=== PATIENT | female | born 1995 | race Two or more races ===

== ENCOUNTER → 2018-02-14 15:35 | Outpatient (CLI) | payer OTHER, SELFPAY ==
[2018-02-14 15:58] LABS: Basophils # 0.1 K/mm3 (0-0.2); Basophils % 0.5 % (0.1-2.0); Eosinophils # 2.4 K/mm3 (0.0-0.4); Eosinophils % 17.5 % (0.1-12.0); Hematocrit 40.2 % (37.0-47.0); Hemoglobin 13.2 g/dL (12.2-16.2); Lymphocytes # 3.2 K/mm3 (0.7-4.5); Lymphocytes % 23.3 K/mm3 (10-50); Mean Corpuscular HGB Conc 32.8 g/dL (31.8-35.4); Mean Corpuscular Hemoglobin 29.4 pg (27.0-31.2); Mean Corpuscular Volume 89.7 fl (81-99); Mean Platelet Volume 7.4 fl (7.4-10.4); Monocytes # 0.6 K/mm3 (0.1-1.0); Monocytes % 4.3 % (1.7-9.3); Neutrophils # 7.5 K/mm3 (1.8-7.8); Neutrophils % 54.4 % (37.0-80.0); Platelet Count 275 K/mm3 (142-424); Red Blood Count 4.48 M/mm3 (4.20-5.40); White Blood Count 13.7 K/mm3 (4.8-10.8)
[2018-02-16 18:07] LABS: HIV Screen 4th Generation wRfx Non Reactive (Non Reactive); Hepatitis B Surface Antigen Negative (Negative); Hepatitis C Antibody <0.1 s/co ratio (0.0-0.9); Rapid Plasma Reagin Ab Titer Non Reactive (NonRea<1:1)
== END ==
PROVIDERS: Visit Provider Obstetrics & Gynecology
DX: Z34.90 Encounter for supervision of normal pregnancy, unspecified, unspecified trimester (principal)
CPT/HCPCS: 36415; 85025; 86592; 86703; 86762; 86850; 87340; 87380; G0432

== ENCOUNTER → 2018-03-28 13:15 | Outpatient (CLI) | payer OTHER, SELFPAY ==
--- NOTE | 2018-03-28 13:16 | US_ITS ---
US OB /maternal detail: INDICATION: ITS.REASON: US OB COMPLETE ORDERING PHYSICIAN: Alison Gerardo MD PATIENT AGE: 23 years TECHNIQUE: ultrasound transabdominal scanning. COMPARISON: No previous relevant studies. FINDINGS: Single viable intrauterine gestation. Breech position. Placenta: Anterior with a posterior accessory lobe placenta grade 1. There is average amount fluid. The cervix appears satisfactory. Closed and measuring 3 cm in length. Complete survey performed and was unremarkable on the submitted images as in PACS. No discrete anomalies identified on survey imaging by technologist. Active fetus. Three-vessel cord with satisfactory umbilical cord insertion. 4- chamber heart noted. Survey of brain & ventricles unremarkable. Face and neck survey unremarkable. Diaphragm and chest views unremarkable. Abdomen: Both kidneys noted and unremarkable. Stomach noted and satisfactory. Spine: Survey of the spine satisfactory with no anomalies identified nor imaged. Both arms and legs noted. Amniotic Fluid: Adequate. Maternal adnexa: No significant findings. Measurements: Average ultrasound age 20w4d. Gestational Age 20w5d. Estimated due date by ultrasound age 1208/11/2018. Estimated weight 375 grams. This is 47th percentile based on established due date of 08/10/2018 BPD = 20w2d OFD = 21w2d HC = 20w1d AC = 20w6d FL = 21w0d Heart Rate = 143 Cerebellum = 19w6d Humerus = 21w0d HC/AC is 1.12 (1.09-1.26). CI is 73% (70-86%). FL/BPD is 74%. FL/AC is 22%. IMPRESSION: There is a single live fetus which is in breech presentation with an average ultrasound age of 20 weeks 4 days. heart and body motion noted. All parameters correlate. No obvious anomalies. Please see above for detail
== END ==
PROVIDERS: PCP Obstetrics & Gynecology; Visit Provider Obstetrics & Gynecology
DX: Z36.0 Encounter for antenatal screening for chromosomal anomalies (principal)
CPT/HCPCS: 76811

== ENCOUNTER → 2018-07-24 16:59 | Outpatient (CLI) | payer OTHER, SELFPAY | PROVIDERS: Visit Provider Obstetrics & Gynecology | DX: Z34.90 Encounter for supervision of normal pregnancy, unspecified, unspecified trimester (principal) | CPT/HCPCS: 86403 ==

== ENCOUNTER 2018-08-05 05:51 | Inpatient (IN) ==
[2018-08-05 06:54] LABS: Basophils # 0.1 K/mm3 (0-0.2); Basophils % 0.4 % (0.1-2.0); Eosinophils # 1.3 K/mm3 (0.0-0.4); Eosinophils % 8.7 % (0.1-12.0); Hematocrit 33.4 % (37.0-47.0); Hemoglobin 10.7 g/dL (12.2-16.2); Lymphocytes # 3.9 K/mm3 (0.7-4.5); Lymphocytes % 26.8 % (10-50); Mean Corpuscular HGB Conc 31.9 g/dL (31.8-35.4); Mean Corpuscular Hemoglobin 25.9 pg (27.0-31.2); Mean Corpuscular Volume 81.2 fl (81-99); Mean Platelet Volume 9.8 fl (7.4-10.4); Monocytes # 0.6 K/mm3 (0.1-1.0); Monocytes % 4.4 % (1.7-9.3); Neutrophils # 8.6 K/mm3 (1.8-7.8); Neutrophils % 59.6 % (37.0-80.0); Platelet Count 273 K/mm3 (142-424); Red Blood Count 4.12 M/mm3 (4.20-5.40); Red Cell Distribution Width 15.2 % (11.5-17.5); White Blood Count 14.4 K/mm3 (4.8-10.8)
--- NOTE | 2018-08-05 09:56 | Progress Note ---
[facility] Anesthesia Record Part I Intake, IV Amount: 2,000 Estimated blood loss (mL): 600 Urine output (mL): 200 Blood Pressure: 119/41 SaO2: 97 Pulse Rate: 73 Respiratory Rate: 16 Temperature: 97.7 F Patient is:: Awake, Stable Stable to PACU at:: 09:55
--- NOTE | 2018-08-05 09:56 | Progress Note ---
[facility] Anesthesia Checklist - Patient Identification Patient Identification: Arm Band - Structural Data Admitted From: Home Planned Operative Procedure/s: repeat c/s Consent for Planned Operative Procedure(s) Verified: Yes Verified Documents: Surgical Consent, History and Physical - NPO Status Verified Time NPO: 00:00 - Additional verifications Anesthesia Reactions: No - Airway Assessment C-Spine Mobility Assessed: Yes (mp2) TMJ Mobility Assessed: Yes Dentition: Good Dentition - Neurological Assessment Level of Consciousness: Awake, Alert - Anesthesia Plan Anesthesia Risk discussed: Yes Anesthesia Plan: Verified ASA Class: II Anesthesia Type: Spinal [facility] History I have reviewed the patient's past medical history: Yes Medical History: Denies:: Anxiety, Depression, Seizures Other Surgeries: Yes: (01/04/2016) Amputation: No Fractures: No - *Social History Smoking Status: Never smoker Alcohol Intake: never Substance Use Type: denies use - Psychiatric History Pschychiatric History:: Denies:: Anxiety, Depression *Family Hx:: No significant family history Para: 1
--- NOTE | 2018-08-05 09:57 | Progress Note ---
[facility] Anesthesia Record Part II Discharge Time: 10:25 Destination: Obstetric PACU nurse assessment reviewed?: Yes Patient Condition:: Good Anesthesia Complications:: None
--- NOTE | 2018-08-05 10:19 | Pharmacy Consult Notes ---
[facility] Pharmacy VTE Monitoring - Patient Demographics Admission date: 08/05/18 Report Date: 08/05/18 Time: 10:19 Allergies/Adverse Reactions: Patient Allergies No Known Allergies Allergy (Verified 07/24/18 10:50) Height: 1.52 m Weight: 79.492 kg - VTE Risk Labs: VTE Related Lab Results Hgb 10.7 g/dL (12.2-16.2) L 08/05/18 06:35 Hct 33.4 % (37.0-47.0) L 08/05/18 06:35 Plt Count 273 K/mm3 (142-424) 08/05/18 06:35 - Prophylaxis VTE Prophylaxis Ordered?: Yes Types of VTE Prophylaxis: IPCS Thigh High Location of Applied Device: Bilateral Lower Extremeties - VTE Diagnosis Confirmed Treatment or plan recommended: Continue Current Treatment
[2018-08-06 00:04] VITALS: BP 109/76
[2018-08-06 06:34] LABS: Basophils # 0.1 K/mm3 (0-0.2); Basophils % 0.4 % (0.1-2.0); Eosinophils % 7.6 % (0.1-12.0); Hematocrit 27.4 % (37.0-47.0); Lymphocytes % 22.7 % (10-50); Mean Corpuscular HGB Conc 31.9 g/dL (31.8-35.4); Mean Corpuscular Hemoglobin 25.7 pg (27.0-31.2); Mean Corpuscular Volume 80.6 fl (81-99); Mean Platelet Volume 9.5 fl (7.4-10.4); Monocytes # 0.7 K/mm3 (0.1-1.0); Monocytes % 5.5 % (1.7-9.3); Neutrophils # 8.5 K/mm3 (1.8-7.8); Neutrophils % 63.9 % (37.0-80.0); Platelet Count 238 K/mm3 (142-424); Red Cell Distribution Width 15.5 % (11.5-17.5); White Blood Count 13.4 K/mm3 (4.8-10.8)
[2018-08-06 06:55] LABS: Hemoglobin 8.8 g/dL (12.2-16.2)
--- NOTE | 2018-08-06 15:43 | Operative Note ---
Date of procedure: 08/05/18 Pre-op Diagnosis:: 1. IUP 39 wks 2. Previous CS, declines CASSANDRA 3. H/O macrosomic Post-op Diagnosis:: 1. IUP 39 wks 2. Previous CS, declines CASSANDRA 3. H/O macrosomic infant Procedure performed:: Repeat Low Transverse C Section Surgeon:: Alison Gerardo MD Anesthesia: spinal Estimated blood loss (mL): 600 Operative findings:: grossly normal uterus, Fallopian tubes and ovaries bilaterally. See delivery summary for data. Operative note:: The patient was taken to the OR and spinal administered without difficulty. She was prepped and draped in normal sterile fashion. A pfannenstiel skin incision was made with the scalpel and carried down to the fascia. The fascia was incised in the midline and sharply dissected off the rectus muscles. The muscles were in the midline and the peritoneum was entered sharply and extended bluntly. The Ryan-O self retaining retractor was placed in the abd omen and a bladder flap was created. The uterus was incised in the lower uterine segment in a transverse fashion and extended bluntly. Amniotomy was performed and clear fluid noted. The infant was delivered in controlled fashion, without complication or shoulder dystocia. The infant was vigorous at and handed to awaiting family and consumer education teacher for evaluation after cord clamped and cut. The placenta was manually extracted and noted to be intact. The uterus was repaired with 0-vicryl in a running/locked fashion. The peritoneum was closed with 2-0 vicryl in running fashion. The subcutaneous fat was closed with 2-0 vicryl in interrupted fashion. The skin was closed with patience. The patient tolerated the procedure well. Sponge, lap, needle and instrument counts were correct x 2. She was taken to PACU in stable condition. Condition: stable Disposition: PACU Specimens:: placenta Complications:: none
--- NOTE | 2018-08-06 15:47 | Progress Note ---
Internal Medicine - PN: Subj *Date: 08/06/18 *Time: 15:43 Interval history: POD #1 repeat CS No complaints Asymptomatic with acute on chronic anemia (10.7 at admission, 8.8 POD #1) Oc reg diet, ambulating and voiding without difficulty Pain control sufficient Lochia appropriate Exam Vital signs and Labs for Last 24 Hours: Temp Pulse Resp BP Pulse Ox 99.2 F 78 18 109/76 L 100 08/05/18 20:12 08/05/18 20:12 08/05/18 20:12 08/05/18 20:12 08/05/18 20:12 Laboratory Results - last 24 hr 08/05/18 08:50: Urine Color Yellow, Urine Appearance Clear, Urine pH 7.0, Ur Specific [place] 1.010, Urine Protein Negative, Urine Glucose (UA) Negative, Urine Ketones Negative, Urine Blood 1+, Urine Nitrate Negative, Urine Bilirubin Negative, Urine Urobilinogen 0.2, Ur Leukocyte Esterase Negative, Urine RBC Occa sional, Urine WBC None, Ur Squamous Epith Cells Occasional, Urine Bacteria Trace 08/06/18 06:04: WBC 13.4 H, RBC 3.40 L, Hgb 8.8 L D, Hct 27.4 L, MCV 80.6 L, MCH 25.7 L, MCHC 31.9, RDW 15.5, Plt Count 238, MPV 9.5, Neut % (Auto) 63.9, Lymph % (Auto) 22.7, [place] % (Auto) 5.5, Eos % (Auto) 7.6, Baso % (Auto) 0.4, Neut # (Auto) 8.5 H, Lymph # (Auto) 3.0, [place] # (Auto) 0.7, Eos # (Auto) 1.0 H, Baso # (Auto) 0.1 I & O for Last 24 hours: Intake & Output 08/04/18 08/05/18 08/06/18 08/07/18 11:59 11:59 11:59 11:59 Intake Total 1999 / 1999 Output Total 200 / 200 Balance 1800 / 1800 Weight 175 lb 4 oz Narrative: CONSTITUTIONAL: no acute distress HEENT: mucous membranes moist PULMONARY: breathing unlabored without audible wheezes CV: no tachycardia or visible JVD; normal LE peripheral pulses ABD: soft, NT/ND, no guarding : fundus firm at/below umbilicus SKIN: no visible rash or lesions. Incision intact with patience; no active drainage or erythema/induration EXT: 1+ edema LEs NEURO: alert/oriented, no altered mental status PSYCH: appropriate mood and demeanor without visible anxiety/depression Assessment and Plan (1) delivery delivered Current visit: Yes Status: Acute Category: Medical Code(s): O82 - Encounter for delivery without indication (2) Anemia associated with acute blood loss Current visit: Yes Status: Acute Category: Medical Code(s): D62 - Acute posthemorrhagic anemia (3) Anemia complicating Current visit: Yes Status: Acute Category: Medical Code(s): O99.019 - Anemia complicating , unspecified trimester (4) Hx of macrosomia in infant in prior , currently Problem details: 10# Current visit: No Status: Chronic Category: Medical Code(s): O09.299 - Supervision of with other poor reproductive or obstetric history, unspecified trimester (5) Previous section Problem details: x1, failure to progress Current visit: No Status: Chronic Category: Surgical Code(s): Z98.891 - History of uterine scar from previous surgery (6) Language barrier affecting health care Problem details: Frisian speaking only Current visit: No Status: Chronic Category: Social Hx Code(s): Z78.9 - Other specified health status - Assessment and plan all Dx Assessment and Plan for all problems:: Routine postop/ care Supplemental FeSO4 for anemia Anticipate discharge in am
[2018-08-07 06:54] LABS: Hematocrit 31.8 % (37.0-47.0); Hemoglobin 9.8 g/dL (12.2-16.2)
--- NOTE | 2018-08-07 12:42 | Discharge Summary ---
General - General Admission date:: 08/05/18 Discharge date: 08/07/18 HPI HPI: S/P elective repeat CS at 39 wks Postop course uneventful Ambulating, regular diet and voiding without difficulty Asymptomatic with [id number] anemia; treating with feso4 discharge home on pod #2 Hospital Course Hospital Course: as documented in HPI Rhogam Administration: Not Indicated Objective Vital signs: Temp Pulse Resp BP Pulse Ox 99.2 F 78 18 109/76 L 100 08/05/18 20:12 08/05/18 20:12 08/05/18 20:12 08/05/18 20:12 08/05/18 20:12 Narrative: CONSTITUTIONAL: no acute distress HEENT: mucous membranes moist PULMONARY: breathing unlabored without audible wheezes CV: no tachycardia or visible JVD; normal LE peripheral pulses ABD: soft, NT/ND, no guarding : fundus firm at/below umbilicus SKIN: no visible rash or lesions. Incision dry/intact EXT: 1+ edema LEs NEURO: alert/oriented, no altered mental status PSYCH: appropriate mood and demeanor without visible anxiety/depression Results Labs on day of discharge: Labs from last 24 hours 08/07/18 06:34 Hgb 9.8 L Hct 31.8 L DS: Diagnosis - Discharge Diagnosis (1) delivery delivered Status: Acute (2) Anemia associated with acute blood loss Status: Acute (3) Anemia complicating Status: Acute (4) Hx of macrosomia in infant in prior , currently Status: Chronic Problem details: 10# (5) Previous section Status: Chronic Problem details: x1, failure to progress (6) Language barrier affecting health care Status: Chronic Problem details: Divehi speaking only Discharge Plan - Patient Discharge Instructions ACTIVITY: Limited activity DIET: regular diet Additional Instructions: NO heavy lifting, no strenuous activity, nothing in the vagina for 6 weeks. RETURN SUNDAY FOR STAPLE REMOVAL FOLLOW-UP WITH DR. YANG ON 08/22/2018@10:30 Patient Instructions: Depression, Hemorrhage, [facility] Post Discharge Instructions - Follow up Plan Follow up with: Alison Yang MD [Staff Physician] - Home Medications: Home Medications Medication Instructions Recorded Confirmed Type No Known Home Medications 03/14/18 08/05/18 History Prescriptions/Medication Reconciliation: New Ibuprofen [Motrin 400mg tablet] 800 mg PO Q6HP PRN tablet PRN Reason: Mild To Moderate Pain Oxycodone HCl [OxyIR 5mg tablet] 5 mg PO Q4HP PRN tablet PRN Reason: Moderate Pain No Action No Known Home Medications
== END 2018-08-07 13:00 | disposition home or self-care (01) ==
LOC: EDBD → OB 05:51
PROVIDERS: ADMIT Obstetrics & Gynecology; ATTEND Obstetrics & Gynecology

== ENCOUNTER 2018-08-10 20:10 | Outpatient (CLI) | payer OTHER, SELFPAY ==
--- NOTE | 2018-08-10 20:10 | PC.NURSE ---
PT AND ARRIVED TO UNIT AND SAID SHE WAS HERE TO HAVE MARGI REMOVED.PT HAD A REPEAT 07/30/18 DONE PER .PT BELARUSIAN SPEAKING SPEAKS A LITTLE MALAY
[2018-08-10 20:15] VITALS: BP 117/81; PULSE 85; RESP 18; TEMP 36.9; O2SAT 97
--- NOTE | 2018-08-10 20:30 | PC.NURSE ---
CLEANSED INCISION WITH HALF STRENTGH PEROXIDE AND STERILE WATER.PRIOR TO STAPLE REMOVAL.PT A LITTLE ANXIOUS ABOUT PROCEDURE GOING TO HURT,TOLD RENY THAT SHE MIGHT FEEL A LITTLE PINCH- RELAYED MESSAGE.FIRST STAPLE REMOVED PT DID NOT FEEL.AFTER ALL MARGI REMOVED INCISION CLEANSED AGAIN.LET INCISION DRY.INCISION A LITTLE PINK IN CENTER WITH NO DRAINAGE NOTED.APPLIED MASTISOL PRIOR TO APPLYING STERI-STRIPS.PT TOLERATED WELL.EXPLAINED ABOUT INCISION CARE TO NOTE ANY REDNESS OR DRAINAGE ANY FEVER TO LET DOCTOR KNOW.EXPLAINED TO LEAVE STERI-STRIPS ON LET THEM FALL OFF ON THEIR OWN,PT AND VERBALIZED UNDERSTANDING.INCISION CARE SHEET PROVIDED TO PT AND IN [facility].
== END 2018-08-10 20:45 | disposition home or self-care (01) ==
PROVIDERS: PCP Obstetrics & Gynecology; Visit Provider Nurse Practitioner Obstetrics & Gynecology
DX: Z48.02 Encounter for removal of sutures (principal)

== ENCOUNTER → 2018-09-11 09:43 | Outpatient (CLI) | payer OTHER, SELFPAY ==
[2018-09-11 10:14] LABS: HCG,Quantitative 0 mIU/mL
== END ==
PROVIDERS: Visit Provider Obstetrics & Gynecology
DX: Z32.00 Encounter for pregnancy test, result unknown (principal)
CPT/HCPCS: 36415; 84702